=== PATIENT | male | born 2000 ===

== ENCOUNTER 2018-07-03 13:36 | Emergency (ER) | payer MEDICAID ==
[2018-07-03 14:01] VITALS: O2SAT 100
[2018-07-03 16:29] LABS: URINE BILIRUBIN NEGATIVE (NEGATIVE); URINE BLOOD NEGATIVE (NEGATIVE); URINE CLARITY CLEAR (Clear); URINE COLOR STRAW (YELLOW); URINE GLUCOSE (UA) NEG (NEGATIVE); URINE LEUKOCYTE ESTERASE NEG Leu/uL (Negative); URINE PROTEIN NEGATIVE (NEGATIVE); URINE UROBILINOGEN 0.2-1.0 mg/dL (0.2-1.0)
--- NOTE | 2018-07-03 17:06 | US ---
Date of service: 07/03/2018 HISTORY: R/O TORSION TECHNIQUE: Realtime sonography through the scrotum with color and doppler flow. COMPARISON: None Available. FINDINGS: RIGHT TESTICLE: Measures 4.0 x 1.9 x 2.6 cm. Normal echotexture and flow. RIGHT EPIDIDYMIS: Epididymal head measures 0.9 x 0.8 x 0.8 cm. Normal color Doppler blood flow. Two 2 mm simple cysts are identified at the epididymal head which is otherwise unremarkable appearing. LEFT TESTICLE: Measures 3.9 x 1.6 x 2.5 cm. Normal echotexture and flow. LEFT EPIDIDYMIS: Epididymal head measures 0.9 x 0.7 x 0.7 cm. Grossly unremarkable appearance with normal flow. HYDROCELE: None. VARICOCELE: None. OTHER FINDINGS: None. IMPRESSION: Tiny right epididymal cysts. No cyst or solid mass at either testicle or evidence of testicular torsion bilaterally. Left epididymis appears unremarkable.
--- NOTE | 2018-07-03 17:09 | ED PDOC ---
HPI: Male Pain Chief Complaint (Nursing): Male Genitourinary Chief Complaint (Provider): Male Genitourinary History Per: Patient History/Exam Limitations: no limitations Onset/Duration Of Symptoms: Days (X2) Current Symptoms Are (Timing): Still Present Additional Complaint(s): 17 year old male with no significant past medical history presents to the ED for a testicular pain onset X2 days. Patient was referred by PMD for a testicular ultra sound. Patient denies difficulty urinating, redness, irritation, dysuria, difficulty urinating. Patient has recently been sexually active with 1 partner. Patient reports that he would like to have STD testing. PMD: Juhi Roe MD Past Medical History Reviewed: Historical Data, Nursing Documentation, Vital Signs Vital Signs: Last Vital Signs Temp 98.7 F 07/03/18 13:55 Pulse 107 H 07/03/18 13:55 Resp 16 07/03/18 13:55 BP 122/70 07/03/18 13:55 Pulse Ox 100 07/03/18 13:55 KIMBER Report Viewed: Yes - Medical History PMH: No Chronic Diseases - Surgical History Surgical History: No Surg Hx - Family History Family History: States: No Known Family Hx - Social History Current smoker - smoking cessation education provided: No Alcohol: Social Drugs: Denies - Allergies Allergies/Adverse Reactions: Allergies Allergy/AdvReac Type Severity Reaction Status Date / Time No Known Allergies Allergy Verified 07/03/18 15:38 Review of Systems ROS Statement: Except As Marked, All Systems Reviewed And Found Negative Genitourinary Male: Positive for: Other (Testicular pain ). Negative for: Dysuria (irritation, redness or difficulty urinating ) Physical Exam - Reviewed Nursing Documentation Reviewed: Yes Vital Signs Reviewed: Yes - Physical Exam Appears: Positive for: Well Head Exam: Positive for: ATRAUMATIC, NORMOCEPHALIC Skin: Positive for: Normal Color, Warm, Dry Eye Exam: Positive for: Normal appearance, EOMI, PERRL Cardiovascular/Chest: Positive for: Regular Rate, Rhythm. Negative for: Murmur Respiratory: Positive for: Normal Breath Sounds. Negative for: Respiratory Distress Gastrointestinal/Abdominal: Positive for: Normal Exam Male Genital Exam: Positive for: normal genitalia (normal penis ), scrotum tenderness (R) (slight ), other ( felt 'weird", and sensitive to touch. ED Holding nurse was present as a gear lapper. ). Negative for: erythema (no swelling, no rashes, ) Extremity: Positive for: Normal ROM (Upper and Lower) Neurological/Psych: Positive for: Awake, Alert, Normal Tone - Laboratory Results Lab Results: Urine Color Straw (YELLOW) 07/03/18 16:15 Urine Clarity Clear (Clear) 07/03/18 16:15 Urine pH 7.0 (5.0-8.0) 07/03/18 16:15 Ur Specific Gaston 1.005 (1.003-1.030) 07/03/18 16:15 Urine Protein Negative mg/dL (NEGATIVE) 07/03/18 16:15 Urine Glucose (UA) Neg mg/dL (NEGATIVE) 07/03/18 16:15 Urine Ketones Negative mg/dL (NEGATIVE) 07/03/18 16:15 Urine Blood Negative (NEGATIVE) 07/03/18 16:15 Urine Nitrate Negative (NEGATIVE) 07/03/18 16:15 Urine Bilirubin Negative (NEGATIVE) 07/03/18 16:15 Urine Urobilinogen 0.2-1.0 mg/dL (0.2-1.0) 07/03/18 16:15 Ur Leukocyte Esterase Neg Marisol/uL (Negative) 07/03/18 16:15 Urine RBC (Auto) < 1 /hpf (0-3) 07/03/18 16:15 Urine Microscopic WBC < 1 /hpf (0-5) 07/03/18 16:15 - ECG O2 Sat by Pulse Oximetry: 100 (RA) Pulse Ox Interpretation: Normal Medical Decision Making Medical Decision Making: Time: 15:38 Initial Impression: testicular pain Plan: -Chlamydia/GC RNA, TMA -Urine culture -Urinalysis -Testicular US -re-evaluate 17:30 Clinical results evaluated and discussed with patient. Patient reports understanding. Urine, Chlamydia/GC, urine culture will result in 2-4 days. Patient reports that he will follow up. Urinary analysis was negative for Urinary tract infection Scribe Attestation: Documented by Parmjit Luis, acting as a scribe for Kaykay Cassidy APN. Provider Scribe Attestation: All medical record entries made by the Scribe were at my direction and personally dictated by me. I have reviewed the chart and agree that the record accurately reflects my personal performance of the history, physical exam, medical decision making, and the department course for this patient. I have also personally directed, reviewed, and agree with the discharge instructions and disposition. Disposition - Clinical Impression Clinical Impression: Epididymal cyst - Patient ED Disposition Is Patient to be Admitted: No Counseled Patient/Family Regarding: Diagnosis - Disposition Disposition: Routine/Home Disposition Time: 17:30 Condition: STABLE Instructions: How to Perform a Testicular Self-Exam Print Language: SENEGALESE - POA Present On Arrival: None
[2018-07-03 17:42] VITALS: BP 128/78; PULSE 78; RESP 18; TEMP 98
== END 2018-07-03 17:41 | disposition home or self-care (01) ==
LOC: H.ER 13:36
DX: N50.3 Cyst of epididymis (principal)